=== PATIENT | male | born 1970 | race American Indian/Alaskan Native ===

== ENCOUNTER 2019-02-28 09:12 | Emergency (ER) | payer MEDICAID, OTHER ==
[~2019-02-28] VITALS: Ht 167.6 cm; Wt 118.2 kg
[~2019-02-28 09:12] MED LIST: CYCL-1 PO
[2019-02-28] MEDS ORDERED: METF-438 PO (09:47)
[2019-02-28] MEDS ORDERED: CLON-527 PO (09:51)
[2019-02-28] MEDS ORDERED: LOSA25TA96 PO (09:51)
[2019-02-28] MEDS ORDERED: SERT25TA PO (09:51)
[2019-02-28] MEDS ORDERED: sertraline 50mg tablet PO ONE (10:30)
[2019-02-28] MEDS ORDERED: losartan 50mg tablet PO SCH (10:30)
[2019-02-28] MEDS ORDERED: losartan 50mg tablet PO ONE (10:30)
[2019-02-28] MEDS ORDERED: clonazePAM 1mg tablet PO ONE (10:30)
[2019-02-28 10:57] VITALS: BP 164/100
== END 2019-02-28 10:58 | disposition home or self-care (01) ==
LOC: ER 09:12
DX: F41.9 Anxiety disorder, unspecified (principal); Z76.0 Encounter for issue of repeat prescription; I10 Essential (primary) hypertension; E11.9 Type 2 diabetes mellitus without complications; Z79.84 Long term (current) use of oral hypoglycemic drugs; Z79.899 Other long term (current) drug therapy
CPT/HCPCS: 99284